=== PATIENT | male | born 1975 | race Caucasian/White ===

== ENCOUNTER 2023-11-06 07:50 | Day surgery (SDC) | payer OTHER ==
[~2023-11-06] VITALS: Ht 180.3 cm; Wt 90.0 kg
[~2023-11-06 07:50] MED LIST: LR 1,000 ML IV SCH; Ondansetron 4 MG/2 ML VIAL IV PRN
[2023-11-06 09:02] VITALS: BP 144/94; PULSE 69; TEMP 97.3
[2023-11-06] MEDS ORDERED: COZAAR100 MG PO (09:05)
[2023-11-06] MEDS ORDERED: Lidocaine PF 2% (20 MG/ML) 5 ML VIAL ONE (09:11)
[2023-11-06 09:55] VITALS: BP 125/90; PULSE 70
[2023-11-06 10:10] VITALS: BP 126/98; PULSE 65
[2023-11-06 10:25] VITALS: BP 132/89; PULSE 62
--- NOTE | 2023-11-06 10:31 | NUR ---
0920 PATIENT RETURNS TO [facility] [place] [facility] VIA CART. PT AWAKE AND ALERT. RESPIRATIONS UNLABORED. AMBULATED TO RECLINER CHAIR WITH 2:1 SBA. PT DENIES NAUSEA OR ABDOMINAL PAIN. HOOKED UP TO MONITOR AND VS OBTAINED. CALL LIGHT AT SIDE AND PRESENT. 1000 PATIENT TOLERATING WATER AND CHEESE/CRACKERS WITHOUT NAUSEA OR DIFFICULTY SWALLOWING (EGD ONLY). 1010 IN ROOM SPEAKING WITH PATIENT. 1020 D/C INSTRUCTIONS REVIEWED WITH PATIENT. PT VERBALIZED UNDERSTANDING AND A COPY OF INSTRUCTIONS PROVIDED IN D/C FOLDER. 1025 PATIENT DRESSES SELF. 1030 PATIENT DISCHARGED FROM UNIT VIA W/C TO A PERSONAL VEHICLE. PT LEFT HOSPITAL IN STABLE CONDITION.
== END 2023-11-06 10:30 | disposition home or self-care (01) ==
LOC: SDCO 07:50
DX: K29.30 Chronic superficial gastritis without bleeding (principal); K29.80 Duodenitis without bleeding; K64.0 First degree hemorrhoids; G47.33 Obstructive sleep apnea (adult) (pediatric); K74.60 Unspecified cirrhosis of liver; K76.0 Fatty (change of) liver, not elsewhere classified; K62.5 Hemorrhage of anus and rectum; K62.89 Other specified diseases of anus and rectum; R19.5 Other fecal abnormalities; F10.90 Alcohol use, unspecified, uncomplicated
CPT/HCPCS: J2704; J7120